=== PATIENT | male | born 1975 | race Caucasian/White ===

== ENCOUNTER 2022-02-26 16:27 | Inpatient (IN) | payer MEDICAID, OTHER ==
[~2022-02-26] VITALS: Ht 167.6 cm; Wt 70.8 kg
[2022-02-26 16:30] VITALS: BP_SYST 194
[2022-02-26] MEDS ORDERED: NACL 0.9% 1,000 ML IV ONE ×4 (16:45→22:15)
[2022-02-26] MEDS ORDERED: ONDANSETRON HCL 4 MG/2 ML VIAL IVP ONE ×2 (16:45→23:15)
[2022-02-26 17:29] LABS: BASOPHILS % (AUTO) 0.1 % (0.0-2.0); HEMATOCRIT 44.9 % (36-54); HEMOGLOBIN 14.8 g/dL (14.0-18.0); LYMPHOCYTES # (AUTO) 0.4 K/uL (1.0-5.5); LYMPHOCYTES % (AUTO) 3.4 % (20.5-51.5); MEAN CORPUSCULAR HEMOGLOBIN 31 pg (27-31); MEAN CORPUSCULAR HGB CONC 33 % (32-36); MEAN CORPUSCULAR VOLUME 93 fL (79.0-98.0); MONOCYTES # (AUTO) 0.2 K/uL (0.0-1.0); MONOCYTES % (AUTO) 1.8 % (1.7-9.3); NEUTROPHILS # (AUTO) 10.8 K/uL (1.8-7.7); NEUTROPHILS % (AUTO) 94.7 % (40.0-70.0); PLATELET COUNT (AUTO) 307 K/uL (130-430); RED BLOOD CELL COUNT(AUTO) 4.83 MIL/uL (4.2-6.2); RED CELL DISTRIBUTION WIDTH 15.4 % (9.0-15.0); WHITE BLOOD COUNT (AUTO) 11.4 K/uL (4.8-10.8)
[2022-02-26 17:32] LABS: ANION GAP 19 (5-15); CALCIUM 8.6 mg/dL (8.4-11.0); CHLORIDE 97 mmol/L (98-107); CREATININE 1.32 mg/dL (0.55-1.30); GLUCOSE 358 mg/dL (70-99); UREA NITROGEN, BLOOD 22 mg/dL (8-21)
[2022-02-26 17:36] LABS: ALANINE AMINOTRANSFERASE 16 U/L (12-78); ALBUMIN 4.3 g/dL (3.4-4.8); AMYLASE 142 U/L (0-100); ASPARTATE AMINOTRANSFERASE 23 U/L (10-37); C-REACTIVE PROTEIN QUANT 1.5 mg/dL (0-0.5); LACTATE DEHYDROGENASE 201 U/L (85-227); LIPASE 63 U/L (73-393); TOTAL BILIRUBIN 0.8 mg/dL (0.0-1.0)
[2022-02-26 17:37] LABS: BILIRUBIN,URINE NEGATIVE (NEGATIVE); BLOOD, URINE 1+ (NEGATIVE); COLOR,URINE YELLOW (YELLOW); GLUCOSE,URINE 3+ (NEGATIVE); KETONES,URINE 3+ (NEGATIVE); LEUKOCYTE ESTERASE ,URINE NEGATIVE (NEGATIVE); NITRITE, URINE NEGATIVE (NEGATIVE); PH,URINE 5.5 (5.0-8.0); PROTEIN URINE 1+ (NEGATIVE); UROBILINOGEN,URINE 0.2 (0.2-1.0)
[2022-02-26 17:42] LABS: GFR AFRICAN AMERICAN 74 mL/min (>90)
[2022-02-26 17:43] LABS: CLARITY/URINE SLIGHTLY CLOUDY (CLEAR)
[2022-02-26 18:00] LABS: ACETONE, SERUM TRACE (NEGATIVE)
[2022-02-26 18:39] LABS: BACTERIA,URINE FEW /HPF (None Seen); WBC,URINE NONE SEEN /HPF (0-3)
[2022-02-26] MEDS ORDERED: INSULIN REGULAR, HUMAN 10 UNITS/0.1 ML, 3 ML VIAL IVP ONE (19:30)
[2022-02-26] MEDS ORDERED: HALOPERIDOL LACTATE 5 MG/ML VIAL IM ONE (19:45)
[2022-02-26 20:12] LABS: BARBITURATE, URINE NEGATIVE (NEG <=200); BENZODIAZEPINE, URINE NEGATIVE (NEG <=150); CANNABINOID, URINE POSITIVE (NEG <=50); COCAINE, URINE NEGATIVE (NEG <=150); METHAMPHETAMINES SCREEN,URINE NEGATIVE (NEG <=500); OPIATE, URINE NEGATIVE (NEG <=100); PHENCYCLIDINE SCREEN,URINE NEGATIVE (NEG <=25); UR TRICYCLIC ANTIDEPRESSANTS NEGATIVE (NEG <=300); URINE AMPHETAMINE NEGATIVE (NEG <=500); URINE METHADONE NEGATIVE (NEG <=200); URINE OXYCODONE SCREEN NEGATIVE (NEG <=100); URINE PROPOXYPHENE SCREEN NEGATIVE (NEG <=300)
[2022-02-26] MEDS: NACL 0.9% 1,000 ML IV SCH (23:15)
[2022-02-27] MEDS: KETOROLAC TROMETHAMINE 30 MG VIAL IVP PRN ×2 (01:37→17:08)
[2022-02-27] MEDS: ONDANSETRON HCL 4 MG/2 ML VIAL IVP PRN ×2 (01:40→17:07)
[2022-02-27] MEDS ORDERED: QUEtiapine FUMARATE 100 MG TABLET ONE (01:41)
[2022-02-27] MEDS: QUEtiapine FUMARATE 100 MG TABLET PO SCH ×2 (01:44→22:23)
[2022-02-27] MEDS ORDERED: INSULIN REGULAR, HUMAN 10 UNITS/0.1 ML, 3 ML VIAL ONE (02:09)
[2022-02-27] MEDS: INSULIN REGULAR, HUMAN 100 UNITS/ML, 3 ML VIAL (humuLIN R) SUBCUT SCH ×6 (02:10→16:38)
[2022-02-27] MEDS: NACL 0.9% 1,000 ML IV SCH ×2 (05:15→19:44)
[2022-02-27 10:24] LABS: BASOPHILS % (AUTO) 0.1 % (0.0-2.0); HEMATOCRIT 40.6 % (36-54); HEMOGLOBIN 13.4 g/dL (14.0-18.0); LYMPHOCYTES # (AUTO) 0.9 K/uL (1.0-5.5); LYMPHOCYTES % (AUTO) 6.9 % (20.5-51.5); MEAN CORPUSCULAR HEMOGLOBIN 31 pg (27-31); MEAN CORPUSCULAR HGB CONC 33 % (32-36); MEAN CORPUSCULAR VOLUME 95 fL (79.0-98.0); MONOCYTES % (AUTO) 7.4 % (1.7-9.3); NEUTROPHILS # (AUTO) 11.2 K/uL (1.8-7.7); NEUTROPHILS % (AUTO) 85.6 % (40.0-70.0); PLATELET COUNT (AUTO) 270 K/uL (130-430); RED BLOOD CELL COUNT(AUTO) 4.28 MIL/uL (4.2-6.2); RED CELL DISTRIBUTION WIDTH 15.8 % (9.0-15.0); WHITE BLOOD COUNT (AUTO) 13.1 K/uL (4.8-10.8)
[2022-02-27 10:36] LABS: ALBUMIN 3.6 g/dL (3.4-4.8); CALCIUM 7.4 mg/dL (8.4-11.0); CREATININE 1.44 mg/dL (0.55-1.30); THYROID STIMULATING HORMONE 0.82 uIu/mL (0.34-4.82); TOTAL BILIRUBIN 0.5 mg/dL (0.0-1.0)
[2022-02-27] MEDS ORDERED: ONDANSETRON HCL 4 MG/2 ML VIAL ONE (17:00)
[2022-02-27] MEDS ORDERED: KETOROLAC TROMETHAMINE 30 MG VIAL ONE (17:00)
[2022-02-28] MEDS ORDERED: INSULIN REGULAR, HUMAN 10 UNITS/0.1 ML, 3 ML VIAL ONE ×2 (00:24→12:17)
[2022-02-28] MEDS: INSULIN REGULAR, HUMAN 100 UNITS/ML, 3 ML VIAL (humuLIN R) SUBCUT SCH ×3 (03:17→16:08)
[2022-02-28] MEDS ORDERED: cefTRIAXone 1 GM IVPB PREMIX 50 ML IV ONE (05:53)
[2022-02-28] MEDS: cefTRIAXone 1 GM in D5W 50 ML IV SCH (05:54)
[2022-02-28] MEDS: KETOROLAC TROMETHAMINE 30 MG VIAL IVP PRN ×2 (08:07→21:31)
[2022-02-28] MEDS: ONDANSETRON HCL 4 MG/2 ML VIAL IVP PRN (08:08)
[2022-02-28] MEDS ORDERED: LURA20TA PO (17:01)
[2022-02-28] MEDS ORDERED: GABA-333 PO (17:01)
[2022-02-28] MEDS ORDERED: QUET300T2 PO (17:01)
[2022-02-28] MEDS: NACL 0.9% 1,000 ML IV SCH ×2 (17:10→19:25)
[2022-02-28 18:27] VITALS: BP_SYST 164
[2022-02-28] MEDS ORDERED: FLU VACC QS2022-23(6MOS UP)/PF 0.5 ML/SYR SYRINGE I.M. PRN (18:45)
[2022-02-28 20:00] VITALS: BP_SYST 166
[2022-02-28] MEDS: QUEtiapine FUMARATE 100 MG TABLET PO SCH (21:26)
[2022-02-28] MEDS: INSULIN REGULAR, HUMAN 100 UNITS/ML, 3 ML VIAL (humuLIN R) SUBCUT PRN (21:38)
[2022-03-01 02:00] VITALS: BP_SYST 157
[2022-03-01] MEDS: cefTRIAXone 1 GM in D5W 50 ML IV SCH (03:33)
[2022-03-01] MEDS: NACL 0.9% 1,000 ML IV SCH ×2 (05:57→21:54)
[2022-03-01] MEDS: INSULIN REGULAR, HUMAN 100 UNITS/ML, 3 ML VIAL (humuLIN R) SUBCUT PRN ×4 (06:04→21:49)
[2022-03-01] MEDS: KETOROLAC TROMETHAMINE 30 MG VIAL IVP PRN ×3 (06:29→17:40)
[2022-03-01] MEDS ORDERED: SIMETHICONE 40 MG/0.6 ML ML ONE (07:17)
[2022-03-01] MEDS: MIDAZOLAM HCL 5 MG/5 ML VIAL ONE ×4 (07:45→07:54)
[2022-03-01] MEDS: MEPERIDINE 100 MG INJ. 100 MG/ML VIAL ONE ×3 (07:45→07:52)
[2022-03-01] MEDS ORDERED: DIPHENHYDRAMINE INJ 50 MG/ML VIAL ONE (07:56)
[2022-03-01] MEDS ORDERED: MIDAZOLAM HCL 5 MG/5 ML VIAL ONE (08:00)
[2022-03-01] MEDS ORDERED: SUCRALFATE 1 GM TABLET PO ONE (08:30)
[2022-03-01] MEDS: PANTOPRAZOLE SODIUM 40 MG/VIAL (PROTONIX) IVP SCH ×2 (11:05→21:45)
[2022-03-01 11:24] VITALS: BP_SYST 149
[2022-03-01 15:25] VITALS: BP_SYST 141
[2022-03-01] MEDS: SUCRALFATE 1 GM TABLET PO SCH (17:39)
[2022-03-01 20:00] VITALS: BP_SYST 156
[2022-03-01] MEDS: QUEtiapine FUMARATE 100 MG TABLET PO SCH (21:46)
[2022-03-02] VITALS: BP_SYST 149
[2022-03-02] MEDS: cefTRIAXone 1 GM in D5W 50 ML IV SCH (05:42)
[2022-03-02] MEDS: NACL 0.9% 1,000 ML IV SCH ×3 (05:45→17:47)
[2022-03-02] MEDS: KETOROLAC TROMETHAMINE 30 MG VIAL IVP PRN ×2 (05:47→12:15)
[2022-03-02] MEDS: INSULIN REGULAR, HUMAN 100 UNITS/ML, 3 ML VIAL (humuLIN R) SUBCUT PRN ×4 (06:28→21:11)
[2022-03-02 06:46] LABS: BASOPHILS % (AUTO) 0.5 % (0.0-2.0); EOSINOPHILS # (AUTO) 0.1 K/uL (0.0-0.4); EOSINOPHILS % (AUTO) 3.1 % (0.0-4.0); HEMATOCRIT 40.3 % (36-54); HEMOGLOBIN 13.5 g/dL (14.0-18.0); LYMPHOCYTES # (AUTO) 1.8 K/uL (1.0-5.5); LYMPHOCYTES % (AUTO) 42.1 % (20.5-51.5); MEAN CORPUSCULAR HEMOGLOBIN 32 pg (27-31); MEAN CORPUSCULAR HGB CONC 34 % (32-36); MEAN CORPUSCULAR VOLUME 94 fL (79.0-98.0); MONOCYTES # (AUTO) 0.5 K/uL (0.0-1.0); NEUTROPHILS # (AUTO) 1.8 K/uL (1.8-7.7); NEUTROPHILS % (AUTO) 42.3 % (40.0-70.0); PLATELET COUNT (AUTO) 264 K/uL (130-430); RED CELL DISTRIBUTION WIDTH 14.9 % (9.0-15.0); WHITE BLOOD COUNT (AUTO) 4.2 K/uL (4.8-10.8)
[2022-03-02 06:51] LABS: CALCIUM 7.8 mg/dL (8.4-11.0)
[2022-03-02] MEDS: SUCRALFATE 1 GM TABLET PO SCH ×2 (06:57→16:23)
[2022-03-02] MEDS: ONDANSETRON HCL 4 MG/2 ML VIAL IVP PRN (07:07)
[2022-03-02 08:27] LABS: CREATININE 0.98 mg/dL (0.55-1.30)
[2022-03-02] MEDS: PANTOPRAZOLE SODIUM 40 MG/VIAL (PROTONIX) IVP SCH ×2 (09:12→20:27)
[2022-03-02 11:23] VITALS: BP_SYST 158
[2022-03-02 15:54] VITALS: BP_SYST 162
[2022-03-02] MEDS: HYDROcodone/ACETAMIN 5-325 MG TAB (NORCO/ VICODIN) PO PRN ×2 (17:45→20:28)
[2022-03-02 20:00] VITALS: BP_SYST 170
[2022-03-02] MEDS: QUEtiapine FUMARATE 100 MG TABLET PO SCH (20:28)
[2022-03-03] VITALS: BP_SYST 155
[2022-03-03] MEDS: HYDROcodone/ACETAMIN 5-325 MG TAB (NORCO/ VICODIN) PO PRN ×3 (02:03→19:01)
[2022-03-03] MEDS: cefTRIAXone 1 GM in D5W 50 ML IV SCH (04:06)
[2022-03-03] MEDS: SUCRALFATE 1 GM TABLET PO SCH ×2 (04:07→17:54)
[2022-03-03] MEDS: INSULIN REGULAR, HUMAN 100 UNITS/ML, 3 ML VIAL (humuLIN R) SUBCUT PRN ×3 (05:36→17:47)
[2022-03-03 06:47] LABS: BASOPHILS % (AUTO) 0.4 % (0.0-2.0); EOSINOPHILS # (AUTO) 0.2 K/uL (0.0-0.4); EOSINOPHILS % (AUTO) 3.6 % (0.0-4.0); HEMATOCRIT 39.9 % (36-54); HEMOGLOBIN 13.1 g/dL (14.0-18.0); LYMPHOCYTES # (AUTO) 1.7 K/uL (1.0-5.5); LYMPHOCYTES % (AUTO) 32.7 % (20.5-51.5); MEAN CORPUSCULAR HEMOGLOBIN 31 pg (27-31); MEAN CORPUSCULAR HGB CONC 33 % (32-36); MEAN CORPUSCULAR VOLUME 94 fL (79.0-98.0); MONOCYTES # (AUTO) 0.5 K/uL (0.0-1.0); NEUTROPHILS # (AUTO) 2.7 K/uL (1.8-7.7); NEUTROPHILS % (AUTO) 53.3 % (40.0-70.0); PLATELET COUNT (AUTO) 268 K/uL (130-430); RED BLOOD CELL COUNT(AUTO) 4.23 MIL/uL (4.2-6.2); RED CELL DISTRIBUTION WIDTH 14.8 % (9.0-15.0); WHITE BLOOD COUNT (AUTO) 5.1 K/uL (4.8-10.8)
[2022-03-03 07:32] LABS: CALCIUM 8.8 mg/dL (8.4-11.0); CREATININE 1.08 mg/dL (0.55-1.30)
[2022-03-03 07:57] VITALS: BP_SYST 165
[2022-03-03] MEDS: PANTOPRAZOLE SODIUM 40 MG/VIAL (PROTONIX) IVP SCH (08:08)
[2022-03-03] MEDS ORDERED: PANTOPRAZOLE SODIUM 40 MG TAB PO ONE (10:15)
[2022-03-03] MEDS ORDERED: CLARITHROMYCIN 500 MG TABLET PO ONE (10:15)
[2022-03-03] MEDS ORDERED: AMOXICILLIN 500 MG CAPSULE PO ONE (10:15)
[2022-03-03 11:45] VITALS: BP_SYST 143
[2022-03-03] MEDS: NACL 0.9% 1,000 ML IV SCH ×2 (11:45→21:45)
[2022-03-03] MEDS: PANTOPRAZOLE SODIUM 40 MG TAB PO SCH (11:57)
[2022-03-03] MEDS ORDERED: guaiFENesin/DEXTROMETHORPHAN 10 ML UDC PO PRN (17:15)
[2022-03-03] MEDS ORDERED: KETOROLAC TROMETHAMINE 30 MG VIAL IVP ONE (17:15)
[2022-03-03 17:17] VITALS: BP_SYST 168
[2022-03-03] MEDS: KETOROLAC TROMETHAMINE 30 MG VIAL IVP PRN ×2 (17:50→19:03)
[2022-03-03] MEDS: QUEtiapine FUMARATE 100 MG TABLET PO SCH (19:48)
[2022-03-03 20:00] VITALS: BP_SYST 148
[2022-03-03] MEDS: CLARITHROMYCIN 500 MG TABLET PO SCH (20:13)
[2022-03-03] MEDS: AMOXICILLIN 500 MG CAPSULE PO SCH (20:14)
[2022-03-04] VITALS (7 sets, daily range): BP systolic 131–146
[2022-03-04] MEDS: ONDANSETRON HCL 4 MG/2 ML VIAL IVP PRN ×2 (02:40→12:15)
[2022-03-04] MEDS: cefTRIAXone 1 GM in D5W 50 ML IV SCH (04:11)
[2022-03-04] MEDS: SUCRALFATE 1 GM TABLET PO SCH ×2 (04:11→17:31)
[2022-03-04] MEDS: INSULIN REGULAR, HUMAN 100 UNITS/ML, 3 ML VIAL (humuLIN R) SUBCUT PRN ×4 (04:56→21:21)
[2022-03-04] MEDS: CLARITHROMYCIN 500 MG TABLET PO SCH ×2 (09:51→21:11)
[2022-03-04] MEDS: PANTOPRAZOLE SODIUM 40 MG TAB PO SCH ×2 (09:52→21:11)
[2022-03-04] MEDS: AMOXICILLIN 500 MG CAPSULE PO SCH ×2 (09:52→21:11)
[2022-03-04] MEDS: NACL 0.9% 1,000 ML IV SCH ×3 (09:53→21:11)
[2022-03-04] MEDS: HYDROcodone/ACETAMIN 5-325 MG TAB (NORCO/ VICODIN) PO PRN ×2 (11:27→18:25)
[2022-03-04] MEDS ORDERED: ALBUTEROL MDI INHALATION 8 GM INH INH PRN (19:00)
[2022-03-04] MEDS: QUEtiapine FUMARATE 100 MG TABLET PO SCH (21:11)
[2022-03-04] MEDS: INSULIN GLARGINE 100 UNITS/ML, 10 ML VIAL SUBCUT SCH (21:22)
[2022-03-04] MEDS ORDERED: IPRATROPIUM/ALBUTEROL SULFATE 3 ML AMPUL.NEB (DUONEB) INH PRN (22:45)
[2022-03-05] MEDS: HYDROcodone/ACETAMIN 5-325 MG TAB (NORCO/ VICODIN) PO PRN ×3 (02:44→21:49)
[2022-03-05] MEDS: SUCRALFATE 1 GM TABLET PO SCH ×2 (06:15→16:50)
[2022-03-05] MEDS: INSULIN REGULAR, HUMAN 100 UNITS/ML, 3 ML VIAL (humuLIN R) SUBCUT PRN ×3 (06:20→21:58)
[2022-03-05] MEDS ORDERED: ALBUTEROL MDI INHALATION 8 GM INH INH PRN (07:26)
[2022-03-05 08:42] VITALS: BP_SYST 132
[2022-03-05] MEDS: PANTOPRAZOLE SODIUM 40 MG TAB PO SCH ×2 (10:01→21:51)
[2022-03-05] MEDS: AMOXICILLIN 500 MG CAPSULE PO SCH ×2 (10:01→21:51)
[2022-03-05] MEDS: CLARITHROMYCIN 500 MG TABLET PO SCH ×2 (10:01→21:51)
[2022-03-05] MEDS: INSULIN GLARGINE 100 UNITS/ML, 10 ML VIAL SUBCUT SCH ×2 (10:06→21:56)
[2022-03-05 10:08] LABS: BASOPHILS % (AUTO) 0.9 % (0.0-2.0); EOSINOPHILS # (AUTO) 0.1 K/uL (0.0-0.4); EOSINOPHILS % (AUTO) 3.9 % (0.0-4.0); HEMATOCRIT 36.5 % (36-54); HEMOGLOBIN 12.3 g/dL (14.0-18.0); LYMPHOCYTES # (AUTO) 1.5 K/uL (1.0-5.5); MEAN CORPUSCULAR HEMOGLOBIN 31 pg (27-31); MEAN CORPUSCULAR HGB CONC 34 % (32-36); MEAN CORPUSCULAR VOLUME 93 fL (79.0-98.0); MONOCYTES # (AUTO) 0.6 K/uL (0.0-1.0); MONOCYTES % (AUTO) 19.4 % (1.7-9.3); NEUTROPHILS # (AUTO) 0.8 K/uL (1.8-7.7); NEUTROPHILS % (AUTO) 26.8 % (40.0-70.0); PLATELET COUNT (AUTO) 267 K/uL (130-430); RED BLOOD CELL COUNT(AUTO) 3.93 MIL/uL (4.2-6.2); RED CELL DISTRIBUTION WIDTH 14.5 % (9.0-15.0)
[2022-03-05 10:48] LABS: CALCIUM 8.7 mg/dL (8.4-11.0); CREATININE 0.94 mg/dL (0.55-1.30); TOTAL BILIRUBIN 0.2 mg/dL (0.0-1.0)
[2022-03-05] MEDS: NACL 0.9% 1,000 ML IV SCH (14:00)
[2022-03-05 20:00] VITALS: BP_SYST 149
[2022-03-05] MEDS: QUEtiapine FUMARATE 100 MG TABLET PO SCH (21:50)
[2022-03-06 02:00] VITALS: BP_SYST 146
[2022-03-06] MEDS: SUCRALFATE 1 GM TABLET PO SCH ×2 (06:24→16:40)
[2022-03-06] MEDS: HYDROcodone/ACETAMIN 5-325 MG TAB (NORCO/ VICODIN) PO PRN ×3 (06:24→21:46)
[2022-03-06] MEDS: NACL 0.9% 1,000 ML IV SCH ×3 (06:25→22:03)
[2022-03-06 08:16] VITALS: BP_SYST 132
[2022-03-06] MEDS: PANTOPRAZOLE SODIUM 40 MG TAB PO SCH ×2 (10:21→21:46)
[2022-03-06] MEDS: AMOXICILLIN 500 MG CAPSULE PO SCH ×2 (10:21→21:45)
[2022-03-06] MEDS: CLARITHROMYCIN 500 MG TABLET PO SCH ×2 (10:21→21:45)
[2022-03-06] MEDS: INSULIN GLARGINE 100 UNITS/ML, 10 ML VIAL SUBCUT SCH ×2 (10:29→21:43)
[2022-03-06] MEDS: INSULIN REGULAR, HUMAN 100 UNITS/ML, 3 ML VIAL (humuLIN R) SUBCUT PRN ×2 (12:25→21:45)
[2022-03-06] MEDS ORDERED: iohexoL 350 mgI/mL, 100 ML INFUS..BTL IV ONE (17:45)
[2022-03-06 20:00] VITALS: BP_SYST 153
[2022-03-06] MEDS: QUEtiapine FUMARATE 100 MG TABLET PO SCH (21:47)
[2022-03-07 03:00] VITALS: BP_SYST 146
[2022-03-07] MEDS: HYDROcodone/ACETAMIN 5-325 MG TAB (NORCO/ VICODIN) PO PRN (05:47)
[2022-03-07] MEDS: SUCRALFATE 1 GM TABLET PO SCH ×2 (05:51→17:11)
[2022-03-07] MEDS: NACL 0.9% 1,000 ML IV SCH ×2 (05:58→17:18)
[2022-03-07 07:06] LABS: BASOPHILS % (AUTO) 0.5 % (0.0-2.0); EOSINOPHILS # (AUTO) 0.2 K/uL (0.0-0.4); EOSINOPHILS % (AUTO) 5.8 % (0.0-4.0); HEMATOCRIT 36.5 % (36-54); HEMOGLOBIN 12.2 g/dL (14.0-18.0); LYMPHOCYTES # (AUTO) 1.3 K/uL (1.0-5.5); LYMPHOCYTES % (AUTO) 42.7 % (20.5-51.5); MEAN CORPUSCULAR HEMOGLOBIN 31 pg (27-31); MEAN CORPUSCULAR HGB CONC 34 % (32-36); MEAN CORPUSCULAR VOLUME 93 fL (79.0-98.0); MONOCYTES # (AUTO) 0.4 K/uL (0.0-1.0); MONOCYTES % (AUTO) 14.6 % (1.7-9.3); NEUTROPHILS # (AUTO) 1.1 K/uL (1.8-7.7); NEUTROPHILS % (AUTO) 36.4 % (40.0-70.0); PLATELET COUNT (AUTO) 291 K/uL (130-430); RED BLOOD CELL COUNT(AUTO) 3.92 MIL/uL (4.2-6.2); RED CELL DISTRIBUTION WIDTH 14.8 % (9.0-15.0); WHITE BLOOD COUNT (AUTO) 3.1 K/uL (4.8-10.8)
[2022-03-07 07:29] LABS: CALCIUM 7.9 mg/dL (8.4-11.0); CREATININE 0.96 mg/dL (0.55-1.30)
[2022-03-07] MEDS: CLARITHROMYCIN 500 MG TABLET PO SCH (09:13)
[2022-03-07] MEDS: PANTOPRAZOLE SODIUM 40 MG TAB PO SCH (09:14)
[2022-03-07] MEDS: AMOXICILLIN 500 MG CAPSULE PO SCH (09:14)
[2022-03-07] MEDS: INSULIN GLARGINE 100 UNITS/ML, 10 ML VIAL SUBCUT SCH (09:20)
[2022-03-07 10:33] VITALS: BP_SYST 135
[2022-03-07 11:53] VITALS: BP_SYST 144
[2022-03-07] MEDS: INSULIN REGULAR, HUMAN 100 UNITS/ML, 3 ML VIAL (humuLIN R) SUBCUT PRN (11:56)
[2022-03-07 17:38] VITALS: BP_SYST 175
[2022-03-07 17:58] VITALS: BP_SYST 133
== END 2022-03-07 21:02 | disposition home or self-care (01) | DRG 242 ==
LOC: SED 16:27 → STU 23:10 → SMU 03-02 23:58
PROVIDERS: ADMIT Internal Medicine; ATTEND Internal Medicine
PROC: 0DB78ZX Excision of Stomach, Pylorus, Via Natural or Artificial Opening Endoscopic, Diagnostic (ICD-10-PCS; 2022-03-01)
PROC: 0DB58ZX Excision of Esophagus, Via Natural or Artificial Opening Endoscopic, Diagnostic (ICD-10-PCS; 2022-03-01)
PROC: 0DB98ZX Excision of Duodenum, Via Natural or Artificial Opening Endoscopic, Diagnostic (ICD-10-PCS; principal; 2022-03-01 08:35)
DX: K22.11 Ulcer of esophagus with bleeding (principal); J96.01 Acute respiratory failure with hypoxia; J12.82 Pneumonia due to coronavirus disease 2019; E10.10 Type 1 diabetes mellitus with ketoacidosis without coma; K26.4 Chronic or unspecified duodenal ulcer with hemorrhage; E10.65 Type 1 diabetes mellitus with hyperglycemia; D72.829 Elevated white blood cell count, unspecified; U07.1 COVID-19; K29.71 Gastritis, unspecified, with bleeding; K29.81 Duodenitis with bleeding; E87.3 Alkalosis; E86.0 Dehydration; R11.15 Cyclical vomiting syndrome unrelated to migraine; K21.9 Gastro-esophageal reflux disease without esophagitis; F12.10 Cannabis abuse, uncomplicated; K44.9 Diaphragmatic hernia without obstruction or gangrene; Z96.41 Presence of insulin pump (external) (internal); Z88.5 Allergy status to narcotic agent; Z79.4 Long term (current) use of insulin; Z87.11 Personal history of peptic ulcer disease
CPT/HCPCS: 36415; 36600; 43239; 71045; 71275; 76376; 80048; 80053; 80061; 80307; 81000; 82009; 82150; 82803-TC; 82962; 83605; 83615; 83690; 84443; 85025; 86140; 87040; 87081; 88305; 88312; 88313; 96361; 96372; 96374; 96375; 96376; 99285; C9113; G0378; J0696; J1200; J1630; J1815; J1885; J1956; J2175; J2250; J2405; J7030; J7060; Q9967

== ENCOUNTER 2022-12-18 16:40 | Emergency (ER) | payer MEDICAID ==
[~2022-12-18] VITALS: Ht 165.1 cm; Wt 78.0 kg
[~2022-12-18 16:40] MED LIST: GABA-333 PO; LURA20TA PO; QUET300T2 PO
[2022-12-18 16:52] VITALS: BP_SYST 116; PULSE 90; RESP 18; TEMP 98.3; O2SAT 98
[2022-12-18] MEDS ORDERED: INSULIN REGULAR, HUMAN 100 UNITS in NS 99 ML IV PRN ×2 (17:00)
[2022-12-18] MEDS ORDERED: DEXTROSE 50% JECT 50 ML DISP.SYRIN IVP PRN (17:00)
[2022-12-18] MEDS ORDERED: NACL 0.9% 1,000 ML IV SCH (17:00)
[2022-12-18 17:29] LABS: BASOPHILS # (AUTO) 0.1 K/uL (0.0-0.2); EOSINOPHILS % (AUTO) 0.2 % (0.0-4.0); HEMATOCRIT 43.1 % (36-54); HEMOGLOBIN 14.5 g/dL (14.0-18.0); LYMPHOCYTES % (AUTO) 15.7 % (20.5-51.5); MEAN CORPUSCULAR HEMOGLOBIN 32 pg (27-31); MEAN CORPUSCULAR HGB CONC 34 % (32-36); MEAN CORPUSCULAR VOLUME 95 fL (79.0-98.0); MONOCYTES # (AUTO) 0.3 K/uL (0.0-1.0); MONOCYTES % (AUTO) 5.3 % (1.7-9.3); NEUTROPHILS # (AUTO) 4.9 K/uL (1.8-7.7); NEUTROPHILS % (AUTO) 77.8 % (40.0-70.0); PLATELET COUNT (AUTO) 393 K/uL (130-430); RED BLOOD CELL COUNT(AUTO) 4.54 MIL/uL (4.2-6.2); RED CELL DISTRIBUTION WIDTH 14.1 % (9.0-15.0); WHITE BLOOD COUNT (AUTO) 6.3 K/uL (4.8-10.8)
[2022-12-18 17:41] LABS: ABG O2 SAT% ESTIMATE 95.4 % (94.0-100.0); BLOOD GAS BASE EXCESS 0.8 mmol/L (-3.0-3.0); BLOOD GAS HCO3 24.8 mmol/L (21.0-27.0); BLOOD GAS PCO2 37.6 mmHg (32.0-45.0); BLOOD GAS PH 7.437 (7.350-7.450)
[2022-12-18 17:44] LABS: ALLEN'S TEST pos (P)
[2022-12-18 17:51] LABS: ANION GAP 15 (5-15); CALCIUM 8.7 mg/dL (8.4-11.0); CARBON DIOXIDE 23 mmol/L (23-29); CHLORIDE 96 mmol/L (98-107); CREATININE 0.97 mg/dL (0.55-1.30); GFR AFRICAN AMERICAN 106 mL/min (>90); GLUCOSE 296 mg/dL (74-106); POTASSIUM 3.5 mmol/L (3.5-5.1); SODIUM SERUM 134 mmol/L (136-145); UREA NITROGEN, BLOOD 7 mg/dL (8-21)
[2022-12-18 17:52] LABS: GFR NON AFRICAN-AMERICAN 87 mL/min (>90)
[2022-12-18 17:54] LABS: ALANINE AMINOTRANSFERASE 17 U/L (12-78); ALBUMIN 3.9 g/dL (3.4-4.8); ASPARTATE AMINOTRANSFERASE 12 U/L (10-37); LIPASE 15 U/L (73-393); PHOSPHORUS 2.3 mg/dL (2.7-4.5); TOTAL BILIRUBIN 0.5 mg/dL (0.0-1.0); TOTAL PROTEIN, SERUM 7.7 g/dL (6.4-8.3)
[2022-12-18 18:49] LABS: ACETONE, SERUM TRACE (NEGATIVE)
[2022-12-18] MEDS ORDERED: KETOROLAC TROMETHAMINE 30 MG VIAL IVP ONE (19:15)
[2022-12-18] MEDS ORDERED: ONDANSETRON HCL 4 MG/2 ML VIAL IVP ONE (19:15)
[2022-12-18] MEDS ORDERED: HYDROmorphone 1 MG/ML INJ. CARTRIDGE IVP ONE (21:30)
[2022-12-18 22:07] VITALS: BP_SYST 120; PULSE 92; RESP 17; TEMP 98.3; O2SAT 98
[2022-12-19] MEDS ORDERED: KCL 20 mEq in NS 1000 mL 1,000 ML IV SCH (10:00)
== END 2022-12-18 22:07 | disposition home or self-care (01) ==
LOC: SED 16:40
DX: E11.65 Type 2 diabetes mellitus with hyperglycemia (principal); R10.13 Epigastric pain; R11.2 Nausea with vomiting, unspecified; F12.90 Cannabis use, unspecified, uncomplicated; Z88.5 Allergy status to narcotic agent; Z79.899 Other long term (current) drug therapy
CPT/HCPCS: 99285; 74176; 96374; 96375; 96361; 80053; 82009; 82962; 83690; 83735; 84100; 85025; 36415; 76376; 36600; 82803; 83605; J1885; J2405; J1170; J7030